=== PATIENT | female | born 1950 ===

== ENCOUNTER 2024-04-30 06:06 | Observation (INO) ==
--- NOTE | 2024-04-23 12:15 | Anesthesiology Consultation ---
Date of Service April 23, 2024 Assessment & Plan (1) Encounter for pre-operative examination: Chart Review Chart Review: Acceptable Risk for Surgery (will get CBC if none available on arrival) History Surgery Operation Date: 04/30/24 07:00 Proposed Procedures p Robotic Hysterectomy, Bilateral Salpingo-Oophorectomy, Robotic Sacral Colpopexy and Cystoscopy, Mid-Urethral Sling (Polypropylene Mesh) - Delgado Castillo MD Height/Weight Height: 4 ft 11 in Weight: 58.967 kg Allergies Allergy/AdvReac Type Severity Reaction Status Date / Time No Known Allergies Allergy Verified 04/20/24 09:37 Medications Home Medications Medication Instructions Recorded Confirmed Last Taken albuterol sulfate 90 mcg/actuation 2 puff inhalation Q6H PRN SOB 04/20/24 04/20/24 Unknown aerosol inhaler atorvastatin 10 mg tablet 10 mg PO QAM 04/20/24 04/20/24 Unknown azelastine 205.5 mcg (0.15 %) 1 spray intranasal BID 04/20/24 04/20/24 Unknown nasal spray estradiol 0.01% (0.1 mg/gram) 1 appful vaginal UD 04/20/24 04/20/24 Unknown vaginal cream fluticasone propionate 230 2 puff inhalation BID 04/20/24 04/20/24 Unknown mcg-salmeterol 21 mcg/actuation HFA inhaler (Advair HFA) gabapentin 100 mg capsule 100 mg PO HS 04/20/24 04/20/24 Unknown levothyroxine 75 mcg tablet 75 mcg PO QAM 04/20/24 04/20/24 Unknown montelukast 10 mg tablet 10 mg PO HS 04/20/24 04/20/24 Unknown pantoprazole 40 mg tablet,delayed 40 mg PO BID 04/20/24 04/20/24 Unknown release (Protonix) Past Medical History Medical History Asthma daily and prn inh>uses maybe 2x/week GERD (gastroesophageal reflux disease) Hypothyroidism Hyperlipidemia Past Surgical History Surgical History History of total right knee replacement History of total left knee replacement History of esophagogastroduodenoscopy (EGD) Hx of colonoscopy Social History Smoking Status: Never smoker Do You Dip or Chew Tobacco: No Hx Alcohol Use: No Hx Substance Use: No substance use type: does not use Testing Electrocardiogram Date: 04/20/24 Findings: + NSR @ (65 with PAC's) Echocardiogram Date: 02/08/23 EF: 55-60% LV Function: normal Valvular Disease: + no significant valvular disease
--- NOTE | 2024-04-30 05:37 | History & Physical Report ---
Date of Service April 30, 2024 Assessment & Plan (1) Uterovaginal prolapse, complete: Plan: Mrs Terrazas no longer wishes to use the pessary as it increases her DARIUS symptoms. She desires a robotic hysterectomy, BSO, Sacral Colpopexy, sling, and cystoscopy. Risks of infection, bleeding, injury,m pain, mesh exposure, urinary retention, and recurrence of prolapse were reviewed. All questions answered. Informed consent confirmed. Present on Admission?: Yes Admission and Anticipated Discharge Date Admission Date: 04/30/2024 Anticipated date of discharge: 05/01/24 History of Present Illness Chief Complaint: Uterovaginal prolapse Primary Care Provider: Lucrecia Jacobo MD Perry Terrazas has been using a pessary for her uterovaginal prolapse. Pessary works well for the prolapse symptoms, however, she continues to have DARIUS with coughing and sneezing. She saw Dr. Potter in [place] last year and was scheduled have surgery for her prolapse and incontinence. Since then she has relocated to [place] and lives with her daughter in law and son. She did have some vaginal bleeding, biopsy showed endometrial polyp. Using estrogen cream and the bleeding has resolved. Allergies Allergy/AdvReac Type Severity Reaction Status Date / Time No Known Allergies Allergy Verified 04/30/24 06:25 Home Medications Medication Instructions Recorded Confirmed Type albuterol sulfate 90 mcg/actuation 2 puff inhalation Q6H PRN SOB 04/20/24 04/30/24 History aerosol inhaler atorvastatin 10 mg tablet 10 mg PO QAM 04/20/24 04/30/24 History azelastine 205.5 mcg (0.15 %) 1 spray intranasal BID 04/20/24 04/30/24 History nasal spray estradiol 0.01% (0.1 mg/gram) 1 appful vaginal UD 04/20/24 04/30/24 History vaginal cream gabapentin 100 mg capsule 100 mg PO HS 04/20/24 04/30/24 History levothyroxine 75 mcg tablet 75 mcg PO QAM 04/20/24 04/30/24 History montelukast 10 mg tablet 10 mg PO HS 04/20/24 04/30/24 History pantoprazole 40 mg tablet,delayed 40 mg PO BID 04/20/24 04/30/24 History release (Protonix) budesonide-formoterol HFA 160 2 puff inhalation BID 04/30/24 04/30/24 History mcg-4.5 mcg/actuation aerosol inhaler (Symbicort) Past Med/Surg History Problem List Uterovaginal prolapse, complete Encounter for pre-operative examination Medical History Asthma daily and prn inh>uses maybe 2x/week GERD (gastroesophageal reflux disease) Hypothyroidism Hyperlipidemia Surgical History History of total right knee replacement History of total left knee replacement History of esophagogastroduodenoscopy (EGD) Hx of colonoscopy Social History Smoking Status: Never smoker Second Hand Exposure: No; Do You Dip or Chew Tobacco: No; Tobacco Cessation Education Requested by Patient: No Hx Alcohol Use: No Hx Substance Use: No Preferred Language: Malagasy Communication Ability: Effective Advanced Practice Nurse Psychotherapist Required: No Beliefs That Will Affect Care: None Current Living Situation: Spouse and Family Other Information That Helps Us Care for You: No Feels Safe at Home: Yes Safety Concerns: Feels Safe At This Time Assistive Devices: Glasses and Other Assistive Devices Comment: partial denture Review of Systems Review of Systems: All systems reviewed & are unremarkable except as noted in HPI & below Physical Exam Constitutional: WD/WN, vitals as above Eyes: PERRL, conjunctivae normal, anicteric sclerae Neck: trachea midline, no thyromegaly Respiratory: normal respiratory effort Cardiovascular: Rate/Rhythm: regular rate Gastrointestinal (Abdomen): normal bowel sounds, soft, nontender, no hepatosplenomegaly Musculoskeletal: no cyanosis or clubbing, extremities motor strength 5/5 Skin: no rashes, warm and dry Psychiatric: A+Ox3, euthymic affect Code Status & VTE Plan VTE Prophylaxis Plan VTE Prophylaxis will be ordered: Yes
[~2024-04-30 06:06] MED LIST: SODIUM CHLORIDE 0.9% 1,000 ML IV SCH
[2024-04-30] MEDS ORDERED: ONDANSETRON INJ 2 MG/ML 2 ML VIAL IV PRN ×2 (06:46→10:30)
[2024-04-30] MEDS ORDERED: ATROPINE SULFATE 0.1 MG/ML 10ML SYR IV PRN (06:46)
[2024-04-30] MEDS ORDERED: PROMETHAZINE HCL 6.25 MG in SODIUM CHLORIDE 0.9% 50 ML IV PRN (06:46)
[2024-04-30] MEDS ORDERED: HYDROmorphone INJ 2 MG/ML SYR/VIAL IV PRN (06:46)
[2024-04-30] MEDS ORDERED: ePHEDrine sulfate 50 MG/ML AMP IV PRN (06:46)
[2024-04-30] MEDS: LR 15ML/HR IV SCH (06:51)
[2024-04-30] MEDS: metroNIDAZOLE 500 MG/100 ML BAG IV SCH (06:52)
[2024-04-30] MEDS ORDERED: MIDAZOLAM HCL 1 MG/ML 2ML VIAL ONE (07:01)
[2024-04-30] MEDS ORDERED: fentaNYL citrate PF 100 MCG/2 ML VIAL ONE (07:02)
[2024-04-30] MEDS ORDERED: ROCURONIUM BROMIDE 10 MG/ML 5 ML VIAL IV ONE (07:02)
[2024-04-30] MEDS ORDERED: PROPOFOL IV EMULSION 10 MG/ML 20 ML VIAL IV ONE (07:02)
[2024-04-30] MEDS ORDERED: DEXAMETHASONE SOD INJ 4 MG/ML VIAL ONE (07:03)
[2024-04-30] MEDS ORDERED: GLYCOPYRROLATE 0.2 MG/ML VIAL ONE (07:03)
[2024-04-30] MEDS ORDERED: NEOSTIGMINE METHYLSULFATE 1 MG/ML 10ML VIAL ONE (07:03)
[2024-04-30] MEDS ORDERED: ONDANSETRON INJ 2 MG/ML 2 ML VIAL ONE ×2 (07:03→09:54)
[2024-04-30] MEDS ORDERED: LIDOCAINE 2% 2 ML VIAL/AMP(20MG/ML) INFIL ONE (07:04)
[2024-04-30] MEDS: ceFAZolin 2000MG 2,000 MG/15 ML SYR IV SCH (07:45)
[2024-04-30] MEDS: FLOSEAL HEMOSTATIC MATRIX 10ML TOP ONE (09:43)
[2024-04-30] MEDS: LIDOCAINE 1%/EPINEPHRINE 1:100,000 50 ML VIAL ONE (10:18)
[2024-04-30] MEDS: BUPIVACAINE 0.5 % 5 MG/1 ML MPF 30ML VIAL ONE (10:18)
[2024-04-30] MEDS ORDERED: oxyCODONE/ACETAMINOPHEN 5mg/325mg TAB PO PRN ×2 (10:30)
[2024-04-30] MEDS: fentaNYL citrate PF 100 MCG/2 ML VIAL IV PRN (10:52)
--- NOTE | 2024-04-30 10:57 | Operative Report ---
Post Operative Report Pre & Post Diagnosis Operation Date: 04/30/24 07:30 Pre-Op Diagnosis: Uterovaginal prolapse, complete, Stress Urinary Incontinence Post-Op Diagnosis: Uterovaginal prolapse, complete, Stress Urinary Incontinence I identified the patient and participated in the time-out.: Yes Procedure Operation Date: 04/30/24 07:30 Actual Procedures p Robotic Hysterectomy, Bilateral Salpingo-Oophorectomy, Robotic Sacral Colpopexy and Cystoscopy, Mid-Urethral Sling (Polypropylene Mesh)(Not Applicable) - Delgado Castillo MD Surgeon Delgado Castillo MD Bulk Clerk Zee Navarro PA-C Estimated Blood Loss 25 Findings Consistent with Post-Op Diagnosis Uterovaginal prolapse. Normal appearing cervix, uterus, tubes, and ovaries. Excellent efflux of ureters bilaterally. Normal cystoscopy. Fluids Crystalloid Specimens cervix, uterus, tubes, and ovaries Drains Dougherty catheter Anesthesia Type General Complications none Disposition Accompanied Patient To Recovery: Yes Disposition: Recovery Room Indications Symptomatic uterovaginal prolapse, DARIUS. No longer wishes to use a pessary. Description of Procedure After Edisjosefina Mk was correctly identified in the preoperative area, the indications, risks, benefits, and alternatives were reviewed. All questions answered. Informed consent was confirmed. Patient was then taken to the operating room and given general anesthesia by anesthesia service. She was then placed in dorsal lithotomy position using Percy stirrups. She was prepped and draped in the usual sterile fashion. Time out was performed. A Dougherty catheter was placed. The cervix was grasped with a tenaculum and sounded. The cervix was serially dilated and a medium size uterine manipulator was placed. Attention was then focused to the abdomen. An 8mm incision was made in the umbilicus. An 8 mm trocar with Optiview was inserted into the incision and advanced into the abdominal cavity under direct visualization. The abdomen was insufflated with CO2 gas. Inspection revealed no adhesions. On the left, two 8 mm trocars were placed. On the right, two 8 mm trocars were placed. The patient was placed in Trendelenburg position to allow the small bowel to retract out of the pelvis. The robot was docked. The ureters were well visualized bilaterally. The left IP ligament was grasped, vessel sealed, and transected. The left round ligament was grasped, vessel sealed and transected. The bladder flap was developed. The left uterine vessels were dissected, grasped, vessel sealed, and transected at the level of the cervical cup of the uterine manipulator. The right IP ligament was grasped, vessel sealed, and transected. The right round ligament was grasped, vessel sealed and transected. The bladder flap was completed. The right uterine vessels were dissected, grasped, vessel sealed, and transected at the level of the cervical cup of the uterine manipulator. A colpotomy incision was made following the contours of the cervical cup. The cervix,uterus, tubes, and ovaries were delivered out the vagina and sent to pathology as specimen. The vaginal cuff was closed with 0 V-lock suture in two layers in a running fashion. The bladder was then dissected off the anterior vaginal wall. The rectum was then dissected off the posterior vaginal wall. A peritoneal incision was made from the sacral promontory and extended to the right corner of the vaginal cuff along the right ingris-colic gutter. The Y mesh was then secured to the anterior and posterior vaginal wall with 2-0 V lock suture in a running fashion. The tail end of the mesh was secured to the anterior longitudinal ligament just below the sacral promontory with 3 interrupted sutures of CV-0 Dowell-jamilah. The excess mesh was trimmed and removed. The peritoneum was closed over the mesh with 2-0 V lock suture in a running fashion. Floseal was applied to the pedicles. Excellent hemostasis was confirmed. The robot was undocked. The trocars were removed under direct visualization. The incisions were closed with 4-0 Monocryl in a subcuticular fashion. Attention was then focused vaginally. The vaginal mucosa overying the mid urethra was grasped with Allis clamps and infiltrated with 0.5% lidocaine with epinephrine. A midline incision was made with the scalpel. The Solyx sling was assembled. The introducer was placed through the incision, advanced to the left pubic rami and inserted into the right obturator internus muscle. The introducer with the other end of the sling was placed through the incision,advanced to the right pubic rami and inserted into the right obturator internus muscle. Excellent hemostasis was noted. The Dougherty catheter was removed and cystoscopy was performed with a 17F 70 deg scope. Systematic inspection of the bladder dome, trigone, and urethra revealed no lesions. Excellent efflux of clear urine was demonstrated bilaterally. The scope was removed and the Dougherty catheter was inserted. The incision was closed with 2-0 Vicryl in a running fashion. All sponge lap and needle counts were correct x 2. Patient was then awakened, extubated and sent to recovery in good condition. I attest to the content of the Intraoperative Record and any orders documented therein. Any exceptions are noted below. No qualified resident was available. An advanced provider,Zee Navarro PA-C, was needed to assist with patient positioning, draping, retraction, irrigation, robotic instrument exchange, and wound closure.
--- NOTE | 2024-04-30 11:39 | Anesthesiology Progress Note ---
Date of Service April 30, 2024 Anesthesia Post Procedure Vital Signs Vital Signs: Temp Pulse Pulse Resp BP Pulse Ox O2 Del Method 04/30/24 11:20 62 16 149/61 H 93 Room Air 04/30/24 11:10 49 L 16 157/64 H 94 Oxymask 04/30/24 11:00 51 L 16 159/84 H 94 Oxymask 04/30/24 10:50 66 18 144/93 H 99 Oxymask 04/30/24 10:40 59 L 19 159/80 H 97 Oxymask 04/30/24 10:33 36.0 C L 81 13 157/82 H 97 Oxymask 04/30/24 06:32 Room Air 04/30/24 06:32 36.6 C 67 16 165/84 H 97 Room Air O2 Flow Rate 04/30/24 11:20 04/30/24 11:10 2 04/30/24 11:00 2 04/30/24 10:50 2 04/30/24 10:40 4 04/30/24 10:33 4 04/30/24 06:32 04/30/24 06:32 Pain Intensity Lower Abdomen: Pain Intensity: 4 Transfer of Care Handoff Completed per policy Notes Mental Status: alert / awake / arousable and participated in evaluation Patient Amnestic to Procedure: Yes Nausea / Vomiting: adequately controlled Pain: adequately controlled Airway Patency, RR, SpO2: stable & adequate BP & HR: stable & adequate Hydration State: stable & adequate Anesthetic Complications: no major complications apparent
[2024-04-30] MEDS: IBUPROFEN 600 MG TAB PO PRN (14:21)
[2024-04-30] MEDS: COUGH DROP (SUGAR FREE) LOZ 24 LOZ/1 BOX BUCCAL ONE (14:21)
--- OUTSIDE RECORDS SUMMARY | 2024-04-30 17:02 | External Medical Summary | Summary of Care ---
Author Name Unknown Organization [facility] Address [address] [place] [address] Phone [phone] Care Team Providers Care Manager Distribution Center Name Role Phone Lucrecia Jacobo MD Primary Care Provider + Reason for Visit * Reason Onset Date Comments Test Results 04/29/2024 Encounter Details Date Type Department Care Team (Late st Contact Info) Description 04/29/2024 Telephone General Internal Medicine [facility] [address] [facility] [place] [address] Lucrecia Jacobo MD [address] [place] [address] Test Results Allergies No known active allergiesdocumented as of this encounter (statuses as of 04/29/2024) Medications Medication Sig Dispensed Refills Start Date End Date Status Celecoxib 200 MG Oral Capsule (CeleBREX) 02/03/2023 Active Albuterol Sulfate HFA 108 (90 Base) MCG/ACT Inhalation Aerosol SolutionIndications:M ild intermittent asthma without complication INHALE 2 PUFFS BY MOUTH EVERY 4 HOURS NEEDED FOR WHEEZE OR FOR SHORTNESS OF BREATH 54 g 3 11/18/2023 Active Atorvastatin Calcium 10 MG Oral Tablet (Lipitor)Indications: Hyperlipidemia with target LDL less than 100 Take 1 Tablet by mouth in the morning. 90 Tablet 3 11/18/2023 Active Estradiol 0.1 MG/GM Vaginal Cream (Estrace) PLACE 0.5 GRAM TWICE WEEKLY VAGINALLY 42.5 g 11/18/2023 Active Fluticasone Propionate 50 MCG/ACT Nasal Suspension (Flonase) SPRAY 1 SPRAY BY NASAL ROUTE EVERY DAY 48 g 3 11/18/2023 Active Gabapentin 100 MG Oral Capsule (Neurontin)Indication s:Chronic bilateral low back pain without sciatica Take 1 Capsule by mouth at bedtime. 90 Capsule 5 11/18/2023 Active Levothyroxine Sodium 75 MCG Oral Tablet (Levoxyl)Indications: Acquired hypothyroidism Take 1 Tablet by mouth in the morning. 90 Tablet 3 11/18/2023 Active Nystatin 867815 UNIT/ML Mouth/Throat SuspensionIndications :Thrush Swish and swallow 5 mL in the morning and 5 mL at noon and 5 mL in the evening and 5 mL before bedtime. For thrush.. 240 mL 1 11/18/2023 Active Pantoprazole Sodium 40 MG Oral Tablet Delayed Release (Protonix)Indications :Gastroesophageal reflux disease without esophagitis Take 1 Tablet by mouth in the morning and 1 Tablet before bedtime. 180 Tablet 3 11/18/2023 Active Montelukast Sodium 10 MG Oral Tablet (Singulair)Indication s:Mild intermittent asthma without complication Take 1 Tablet by mouth at bedtime. 1 daily 90 Tablet 3 11/18/2023 Active Loratadine 10 MG Oral Tablet (Claritin)Indications :Chronic maxillary sinusitis Take 1 Tablet by mouth in the morning. 1 daily. 90 Tablet 3 11/18/2023 Active Azelastine HCl 137 MCG/SPRAY Nasal Solution INHALE 1 SPRAY INTO EACH NOSTRIL IN THE MORNING AND AT BEDTIME 30 mL 3 04/14/2024 Active Famotidine 40 MG Oral Tablet (Pepcid) Take 1 Tablet by mouth daily as needed for Heartburn. Active Fluticasone-Salmetero l 230-21 MCG/ACT Inhalation Aerosol (Advair HFA) Inhale 2 Puffs by mouth in the morning and 2 Puffs before bedtime. Already approved for patient. 36 g 4 04/26/2024 Active Benzonatate 100 MG Oral Capsule (Tessalon Perles) Take 1 Capsule by mouth 3 times a day as needed for Cough. 20 Capsule 1 04/27/2024 Active Budesonide-Formoterol Fumarate 160-4.5 MCG/ACT Inhalation Aerosol (Symbicort) Inhale 2 Puffs by mouth in the morning and 2 Puffs before bedtime. 30.6 g 3 04/27/2024 Active documented as of this encounter (statuses as of 04/29/2024) Active Problems Problem Noted Date Diagnosed Date Gastroesophageal reflux disease without esophagi tis 03/26/2023 Hyperlipidemia with target LDL less than 100 04/2023 Acquired hypothyroidism 03/26/2023 Osteoarthritis of right knee Asthma GERD (gastroesophageal reflux disease) Glaucoma Hypothyroid documented as of this encounter (statuses as of 04/29/2024) Immunizations Name Administration Dates Next Due COVID-19 mRNA, LNP-s, PF, 18+ or 6-11Yrs (Modern a) 12/18/2020,11/18/2020 Pneumococcal Conjugate Vacc, 13 Valent (Prevnar) 11/04/2017 Pneumococcal Polysaccharide PPV23 (Pneumovax) ,04/02/2016 RSV Vac., Recomb, Adjuvant, PF,0.5 Ml (Arexvy) 0 10/26/2023 Seasonal Influenza, PF, 6 M & above, IM , (FluLaval or Fluzone) 06/27/2022 Seasonal Influenza, Quadrivalent Hd (Fluzone Hd) 06/30/2023 Seasonal Influenza, Split, IIV3, No Preserve, In j 08/20/2013 Seasonal Influenza, Trivalen t, High Dose, No Preserve, IM 08/05/2017 TDAP (age 10 and older)(Boostrix) 04/02/2016 Zoster Vaccine Recombinant (Shingrix) 04/30/2021 ,08/30/2020 documented as of this encounter Social History Tobacco Use Types Packs/Day Years Used Date Smoking Tobacco: Never Smokeless Tobacco: Never Alcohol Use Standard Drinks/Week Comments Never 0 (1 standard drink = 0.6 oz pur e alcohol) Utilities Answer Date Recorded Do you have trouble paying y our heating, water, or electric bill? (Adult - for ages 18 years and over) Not on file 04/06/2024 Is your family able to pay t he heat, water, or electric bill? (Household - for ages 0-17 years) Not on file 04/06/2024 Does your family have access to good internet? (Household - for ages 0-17 years) Not on file 04/06/2024 Social Connections Answer Date Recorded How often do you feel lonely or isolated from those around you? (Adult - for ages 18 years and over) Not on file 04/06/2024 Sex and Gender Information Value Date Recorded Sex Assigned at Female 11/23/2023 11:25 AM EST Gender Identity Female 11/23/2023 11:25 AM EST Sexual Orientation Straight 11/23/2023 11 :25 AM EST Job Start Date Occupation Industry Not on file Not on file Not on file Travel History Travel Start Travel End [place] 04/05/2024 04/16/2024 documented as of this encounter Miscellaneous Notes * Telephone Encounter - Lashay Cantu MED ASSIST - 04/29/2024 7:59 AM EDT Spoke to Rebecca Terrazas, aware and verbalized understanding. Decided to fax OV notes to be on the safe side OV notes faxed to Dr Castillo at [phone]. Confirmation received * Telephone Encounter - Lashay Cantu MED ASSIST - 04/29/2024 7:56 AM EDT ----- Message from Lucrecia Jacobo MD sent at 04/27/2024 6:57 PM EDT ----- Patient's preop labs and chest x-ray came back normal which makes her clear for upcoming surgery. If needed can fax the notes to her ortho surgeon and check with the [id number] Dr. Rebecca Terrazas. documented in this encounter Plan of Treatment Upcoming Encounters Date Type Department Care Team (Late st Contact Info) Description 05/12/2024 4:10 PM EDT Telemedicine Urogynecology [facility] [address] [place] [address] Delgado Castillo MD [address] [place] [address] 05/26/2024 2:10 PM EDT Office Visit Urogynecology [facility] [address] [place] [place] [address] Delgado Castillo MD [address] [place] [address] 09/01/2024 3:30 PM EST Office Visit Allergy/Immunology [facility] [place] [address] [facility] [place] [address] [facility] [address] Health Maintenance Due Date Last Done Comments Depression Screening 1962 Hepatitis C Screening 1969 Cologuard 1996 Colonoscopy 1996 Colorectal Cancer Screening 1996 Fecal Occult Blood Test 1996 Sigmoidoscopy 1996 COVID-19 Vaccine ( season) 2024 10/26/2023, 02/04/2022, 12/18/2020, Additional history exists Influenza Vaccine (FLU shot) (#1) 2024 06/30/2023, 06/27/2022, 08/05/2017, Additional history exists Mammogram 11/25/2024 11/25/2023, 02/19, 03/19/2022, Additional history exists TSH 04/24/2025 04/24/2024, 10/21, 03/27/2023 DTaP,Tdap,and Td Vaccines (2 - Td or Tdap) 04/02/2026 04/02/2016 DXA Scan 11/18/2027 11/18/2017 Lipid Panel 04/24/2029 04/24/2024, 11/13/2023 Pneumococcal Vaccine: 65+ Years Completed 04/30/2021, 11/04/2017, 04/02/2016 Zoster Vaccines Completed 04/30/2021, 08/30/2020 HPV (Gardasil) Vaccine Aged Out No lo nger eligible based on patient's age to complete this topic Hepatitis B Vaccine Aged Out No longe r eligible based on patient's age to complete this topic MENINGOCOCCAL (MENACTRA/MENVEO) Aged Out No longer eligible based on patient's age to complete this topic documented as of this encounter Medical Devices Not on filedocumented as of this encounter Care Teams Manager Distribution Center Relationship Specialty Start Date End Date Lucrecia Jacobo MD [address] [place] [address] PCP - General Internal Medicine 10/02/23 documented as of this encounter
--- OUTSIDE RECORDS SUMMARY | 2024-04-30 17:02 | External Medical Summary | Summary of Care ---
Author Name Unknown Organization [facility] Address [address] [place] [address] Phone [phone] Care Team Providers Care Clutch Mechanic Name Role Phone Lucrecia Jacobo MD Primary Care Provider + Encounter Details Date Type Department Care Team (Late st Contact Info) Description 04/27/2024 Telephone Allergy/Immunology [facility] [place] [address] [place] [address] David Lester MD [address] [facility] [address] Allergies No known active allergiesdocumented as of this encounter (statuses as of 04/27/2024) Medications Medication Sig Dispensed Refills Start Date [...] morning. 90 Tablet 3 11/18/2023 Active Nystatin [id number] UNIT/ML Mouth/Throat SuspensionIndications :Thrush Swish and swallow [...] and 1 Tablet before bedtime. 180 Tablet 11/18/2023 Active Montelukast Sodium 10 MG Oral Tablet (Singulair)Indication s:Mild intermittent asthma without complication Take 1 Tablet by mouth at bedtime. 1 daily 90 Tablet 11/18/2023 Active Loratadine 10 MG Oral Tablet (Claritin)Indications :Chronic maxillary sinusitis Take 1 Tablet by mouth in the morning. 1 daily. 90 Tablet 11/18/2023 Active Azelastine HCl 137 MCG/SPRAY Nasal [...] as of this encounter (statuses as of 04/27/2024) Active Problems Problem Noted Date Diagnosed Date Gastroesophageal reflux disease without esophagi tis 03/26/2023 Hyperlipidemia with target LDL less than 100 04/2023 Acquired hypothyroidism 03/26/2023 Osteoarthritis of right knee Asthma GERD (gastroesophageal reflux disease) Glaucoma Hypothyroid documented as of this encounter (statuses as of 04/27/2024) Immunizations Name Administration Dates Next Due COVID-19 [...] 04/05/2024 04/16/2024 documented as of this encounter Plan of Treatment Upcoming Encounters Date Type Department Care Team (Late st Contact Info) Description 05/04/2024 9:15 AM EDT Imaging Cardiac Studies, [facility] [address] [facility] [place] [address] 05/12/2024 4:10 PM EDT Telemedicine Urogynecology [facility] [address] [facility] [place] [address] Delgado Castillo MD [address] [place] [address] 05/26/2024 2:10 PM EDT Office Visit Urogynecology [facility] [address] [facility] [place] [address] Delgado Castillo MD [address] [place] [address] 09/01/2024 3:30 PM EST [facility] [address] [facility] [place] [address] David Lester MD [address] [facility] [place] [address] Health Maintenance Due Date Last Done Comments [...] filedocumented as of this encounter Care Teams Clutch Mechanic Relationship Specialty Start Date End Date Lucrecia Jacobo MD [address] [place] [address] PCP - General Internal Medicine 10/02/23 documented as of this encounter
--- OUTSIDE RECORDS SUMMARY | 2024-04-30 17:02 | External Medical Summary | Summary of Care ---
Author Name Unknown Organization [facility] Address [address] [place] [address] Phone [phone] Care Team Providers Care Back Up Machine Operator Name Role Phone Lucrecia Jacobo MD Primary Care Provider + Reason for Referral * Precert (Within 10 days (routine)) - Authorized Specialty Diagnoses / Procedures Referred By Contac t Referred To Contact Cardiac Studies Diagnoses Preoperative general physical examination EKG abnormalities Procedures ECHO, STRESS (DOBUTAMINE) W/CONTRAST Lucrecia Jacobo MD [address] [facility] [place] [address] Referral ID Status Reason Start Date Expiration Date V isits Requested Visits Authorized [id number] Authorized Precert 04/20/2024 999 999 Reason for Visit * Reason Comments pre-op exam Encounter Details Date Type Department Care Team (Latest Contact Info) Description 04/20/2024 2:00 PM EDT Office Visit General Internal Medicine [place] [address] [place] [address] Lucrecia Jacobo MD [address] [facility] [place] [address] Preoperative general physical examination*; Uterovaginal prolapse, incomplete; Stress incontinence; EKG abnormalities Allergies No known active allergiesdocumented as of this encounter (statuses as of 04/27/2024) Medications Medication Sig Dispensed Refills Start Date End Date Status Celecoxib 200 MG Oral Capsule (CeleBREX) 02/03/2023 Active Albuterol Sulfate HFA 108 (90 Base) MCG/ACT Inhalation Aerosol SolutionIndications: Mild intermittent asthma without complication INHALE 2 PUFFS BY MOUTH EVERY 4 HOURS NEEDED FOR WHEEZE OR FOR SHORTNESS OF BREATH 54 g 11/18/2023 Active Atorvastatin Calcium 10 MG Oral Tablet (Lipitor)Indications :Hyperlipidemia with target LDL less than 100 Take 1 Tablet by mouth in the morning. 90 Tablet 11/18/2023 Active Estradiol 0.1 MG/GM Vaginal Cream (Estrace) PLACE 0.5 GRAM TWICE WEEKLY VAGINALLY 42.5 g 11/18/2023 Active Fluticasone Propionate 50 MCG/ACT Nasal Suspension (Flonase) SPRAY 1 SPRAY BY NASAL ROUTE EVERY DAY 48 g 11/18/2023 Active Gabapentin 100 MG Oral Capsule (Neurontin)Indicatio ns:Chronic bilateral low back pain without sciatica Take 1 Capsule by mouth at bedtime. 90 Capsule 11/18/2023 Active Levothyroxine Sodium 75 MCG Oral Tablet (Levoxyl)Indications :Acquired hypothyroidism Take 1 Tablet by mouth in the morning. 90 Tablet 11/18/2023 Active Nystatin 635203 UNIT/ML Mouth/Throat SuspensionIndication s:Thrush Swish and swallow 5 mL in the morning and 5 mL at noon and 5 mL in the evening and 5 mL before bedtime. For thrush.. 240 mL 11/18/2023 Active Pantoprazole Sodium 40 MG Oral Tablet Delayed Release (Protonix)Indication s:Gastroesophageal reflux disease without esophagitis Take 1 Tablet by mouth in the morning and 1 Tablet before bedtime. 180 Tablet 11/18/2023 Active Montelukast Sodium 10 MG Oral Tablet (Singulair)Indicatio ns:Mild intermittent asthma without complication Take 1 Tablet by mouth at bedtime. 1 daily 90 Tablet 11/18/2023 Active Loratadine 10 MG Oral Tablet (Claritin)Indication s:Chronic maxillary sinusitis Take 1 Tablet by mouth in the morning. 1 daily. 90 Tablet 11/18/2023 Active Azelastine HCl 137 MCG/SPRAY Nasal Solution INHALE 1 SPRAY INTO EACH NOSTRIL IN THE MORNING AND AT BEDTIME 30 mL 3 04/14/2024 Active Famotidine 40 MG Oral Tablet (Pepcid) Take 1 Tablet by mouth daily as needed for Heartburn. Active Meloxicam (MOBIC) 15 MG Tablet As needed 4 Discontinue d(Patient preference/ discontinua tion) Fluticasone-Salmeter ol 230-21 MCG/ACT Inhalation Aerosol (Advair HFA) Inhale 2 Puffs by mouth in the morning and 2 Puffs before bedtime. Already approved for patient. 36 g 4 11/25/2023 4 Discontinue d(Refill) documented as of this encounter (statuses as [...] 04/05/2024 04/16/2024 documented as of this encounter Last Filed Vital Signs Vital Sign Reading Time Taken Comments Blood Pressure 98/62 04/20/2024 2:11 PM EDT Pulse 68 04/20/2024 2:11 PM EDT Temperature 36.1 C (97 F) 04/20/2024 2:11 PM EDT Respiratory Rate 16 04/20/2024 2:11 PM EDT Oxygen Saturation - - Inhaled Oxygen Concentration - - Weight 62.1 kg (136 lb 12.8 oz) 04/20/2024 2:11 PM EDT Height - - Body Mass Index 27.63 12/03/2023 3:49 PM EST documented in this encounter Progress Notes * Lucrecia Jacobo MD - 04/20/2024 2:25 PM EDT Images from the original note were not included. Pre-Operative Medical Evaluation Procedure Information Type of Surgery: Robotic hysterectomy, bso, sacral colpopexy, sling, and cystoscopy Referring Physician / Surgeon: Delgado Castillo MD Date of procedure: 04/30/24 Brief History of Present Illness: Pt with stress incontinence, hx of Uterovaginal prolapse.pessary not very helpful. DARIUS with coughing, sneezing. Medical History Problem List: Gastroesophageal reflux disease without esophagitis (03/26/2023) Hyperlipidemia with target LDL less than 100 (03/26/2023) Acquired hypothyroidism (03/26/2023) Osteoarthritis of right knee Asthma GERD (gastroesophageal reflux disease) Glaucoma Hypothyroid Current Medications Famotidine 40 MG Oral Tablet (Pepcid), 40 mg, Oral, Daily PRN Azelastine HCl 137 MCG/SPRAY Nasal Solution, INHALE 1 SPRAY INTO EACH NOSTRIL IN THE MORNING AND ATBEDTIME Fluticasone-Salmeterol 230-21 MCG/ACT Inhalation Aerosol (Advair HFA), 2 Puff, Inhalation, BID(AM/PM) Albuterol Sulfate HFA 108 (90 Base) MCG/ACT Inhalation Aerosol Solution, INHALE 2 PUFFS BY MOUTH EVERY 4 HOURS NEEDED FOR WHEEZE OR FOR SHORTNESS OF BREATH Atorvastatin Calcium 10 MG Oral Tablet (Lipitor), 10 mg, Oral, Daily(AM) Estradiol 0.1 MG/GM Vaginal Cream (Estrace), PLACE 0.5 GRAM TWICE WEEKLY VAGINALLY Fluticasone Propionate 50 MCG/ACT Nasal Suspension (Flonase), SPRAY 1 SPRAY BY NASAL ROUTE EVERY DAY Gabapentin 100 MG Oral Capsule (Neurontin), 100 mg, Oral, HS Levothyroxine Sodium 75 MCG Oral Tablet (Levoxyl), 75 mcg, Oral, Daily(AM) Loratadine 10 MG Oral Tablet (Claritin), 10 mg, Oral, Daily(AM) Montelukast Sodium 10 MG Oral Tablet (Singulair), 10 mg, Oral, HS Nystatin 147568 UNIT/ML Mouth/Throat Suspension, 500,000 Units, Swish & Swallow, QID(AM/NOON/PM/HS) Pantoprazole Sodium 40 MG Oral Tablet Delayed Release (Protonix), 40 mg, Oral, BID(AM/PM) Celecoxib 200 MG Oral Capsule (CeleBREX), Meloxicam (MOBIC) 15 MG Tablet, As needed Allergies: Patient has no known allergies. Past Medical History: has a past medical history of Allergic, Asthma, GERD (gastroesophageal reflux disease), Glaucoma, Hyperlipidemia, Hyponatremia, Hypothyroid, Insomnia, Osteoarthritis, Osteoarthritis of right knee, and Osteoporosis. Past Surgical History: has a past surgical history that includes none and Arthroplasty Knee Total (Bilateral). Social History: reports that she has never smoked. She has never used smokeless tobacco. She reports that she does not drink alcohol and does not use drugs. Family History: family history includes Arthritis in her mother; Diabetes in her brother, brother, and mother; Heart Disorder in her father; Heart disease in her father; Stroke in her brother. Anesthesia History Type of Anesthesia: General Endotracheal and Caudal block Anesthesia reaction: No History of surgical complications: No Personal history of venous thromboembolic disease: No Physical Exam Vitals: 04/20/24 1411 Temp: 36.1 C (97 F) Pulse: 68 Resp: 16 BP: 98/62 HEENT: PERRLA, EOMI, anicteric sclera, b/l tympanic membrane is pearly white, no erythema, no pharyngeal erythema, no lymphadenopathy, neck supple CVS: RRR, no murmurs, rubs or gallops, s1 s 2normal. RESP: clear to auscultation, no wheezing or crackles ABD: soft, NT/ND EXT: no edema, cyanosis, peripheral pulses palpable bilaterally No large joint swelling, no redness, range of motion normal. Skin normal. Gait normal. Mood stable No focal weakness Labs reviewed and are significant for: None and is not significant for any abnormalities. EKG by my review is significant for: T wave changes, NO ST T changes, occasional PVCS, changes are not new. Surgical Risk Scoring Revised Cardiac Risk Index (RCRI) High-risk type of surgery (examples include vascular and any open intraperitoneal or intrathoracic procedures): 0=No History of ischemic heart disease (history of myocardial infarction or positive exercise test, current compliant of chest pain considered to be secondary to myocardia ischemia, use of nitrate therapy, or ECG with pathological Q waves; do not count prior coronary revascularization procedure unless one of the other criteria for ischemic heart disease is present): 0=No History of heart failure: 0=No History of cerebrovascular disease: 0=No Diabetes mellitus requiring treatment with insulin: 0=No Preoperative serum creatinine >2.0 mg/dL (177 micromol/L): 0=No Pt has revised cardiac index score of: One Risk Factor- 1.0% (95% CI: 0.5-1.4) Screening for Obstructive Sleep Apnea (STOP-BANG) Do you Snore loudly? 0=No Do you often feel Tired, Fatigued, or Sleep? 0=No Has anyone Observed you Stop Breathing or Choking/Gasping during sleep? 0=No Do you have or are you being treated for High Blood Pressure? 0=No BMI over 35? 0=No Age older than 50? 0=No Neck size large? (For males - 17 inches or larger, For females - 16 inches or larger) 0=No Male? 0=No Score 0-2:low risk YAN, 3-4: intermediate risk of YAN, 5-8: high risk YAN Assessment and Plan Functional Assessment They are able to walk up a flight of stairs and walk two blocks at a moderate pace. The patient's functional status is adequate (equal to 4 METS). 1 MET: 4 METs: 4-10 METs: Can take care of self, such as eat, dress or use the toilet. Can walk to block or go up a flight of steps. Can do heavy house work. Preoperative general physical examination (Primary) - XR CHEST 2 VIEWS - ECHO, STRESS (DOBUTAMINE) W/CONTRAST; Future; Expected date: 04/20/2024 Uterovaginal prolapse, incomplete - EKG Stress incontinence - EKG EKG abnormalities - ECHO, STRESS (DOBUTAMINE) W/CONTRAST; Future; Expected date: 04/20/2024 Surgical Risk Assessment Patient is indeterminate medical risk for the listed procedure. Medication adjustments: Avoid Nsaids, ASA, fish oil a week prior to surgery. Perioperative hydration in moderation looking at hx of hyponatremia. Continue all meds except morning of surgery but can use PPI, inahlers. Looking at all the labs and Xray chest, clinical condition- Pt is clear for upcoming surgery. Additional consults or testing: Can get Dobutamine Echo but not urgent and can get after the surgery. 2 D Echo last year in [place] was normal. documented in this encounter Procedure Notes * Vito Elena, - 04/20/2024 2:48 PM EDTAssociated Order(s): EKG REASON FOR STUDY: preoperative;preoperative CONCLUSIONS: Sinus rhythm with Premature atrial complexes Possible Left atrial enlargement Left ventricular hypertrophy Abnormal ECG No previous ECGs available Ventricular Rate: 64 Atrial Rate: 64 MD Interval: 194 QRS Duration: 80 QT/QTc: 396/408 ms P-R-T [place]: 27 : -18 : 17 degrees documented in this encounter Nursing Notes * Serena Woodruff LPN - 04/20/2024 2:11 PM EDT The patient has been properly identified by confirmation of name and date of . Chief Complaint Patient presents with pre-op exam documented in this encounter Miscellaneous Notes * Result Encounter Note - Lucrecia Jacobo MD - 04/27/2024 6:57 PM EDT Patient's preop labs and chest x-ray came back normal which makes her clear for upcoming surgery. If needed can fax the notes to her ortho surgeon and check with the [id number] Dr. Rebecca Terrazas. documented in this encounter Plan of Treatment Upcoming Encounters Date Type Department Care Team (Late st Contact Info) Description 05/04/2024 9:15 AM EDT [facility] [address] [place] [address] 05/12/2024 4:10 PM EDT Telemedicine Urogynecology [facility] [address] [place] [address] Delgado Castillo MD [address] [place] [address] 05/26/2024 2:10 PM EDT Office Visit Urogynecology [facility] [address] [place] [address] Dlegado Castillo MD [address] [place] [address] 09/01/2024 3:30 PM EST Office Visit Allergy/Immunology [facility] [place] [address] [facility] [place] [address] David Lester MD [address] [facility] [place] [address] Scheduled Orders Name Type Priority Associated Diagnoses Orde r Schedule ECHO, STRESS (DOBUTAMINE) W/CONTRAST Echocardiology Routine Preoperative general physical examination EKG abnormalities Expected: 04/20/2024, Expires: 05/21/2025 Health Maintenance Due Date Last Done Comments [...] Not on filedocumented as of this encounter Procedures Procedure Name Priority Date/Time Associated Diagnosis Comments XR CHEST 2 VIEWS Routine 04/20/2024 3:44 PM EDT Preoperative general physical examination MD ECG ROUTINE ECG W/LEAST 12 LDS I&R ONLY Routine 04/20/2024 2:48 PM EDT Uterovaginal prolapse, incomplete Stress incontinence documented in this encounter Results * XR CHEST 2 VIEWS (04/20/2024 3:44 PM EDT) Anatomical Region Laterality Modality Chest Computed Radiogr aphy 04/21/2024 6:27 PM EDT Impressions 04/21/2024 6:24 PM EDT IMPRESSION No active disease. Narrative 04/21/2024 6:24 PM EDT EXAM XR CHEST 2 VIEWS - 04/20/2024 3:44 pm HISTORY "preop" TECHNIQUE Frontal and lateral views of the chest were obtained. COMPARISON None. FINDINGS The lungs are clear. There is no pleural effusion or pneumothorax. The cardiomediastinal silhouette is within normal limits. Procedure Note Joe Jacobo MD - 04/21/2024 EXAM XR CHEST 2 VIEWS - 04/20/2024 3:44 pm HISTORY "preop" TECHNIQUE Frontal and lateral views of the chest were obtained. COMPARISON None. FINDINGS The lungs are clear. There is no pleural effusion or pneumothorax. Thecardiomediastinal silhouette is within normal limits. IMPRESSION IMPRESSION No active disease. Lucrecia Jacobo MD RADIOLOGY (RAD G ENERAL) * EKG (04/20/2024 2:48 PM EDT) 04/20/2024 2:48 PM EDT Narrative Procedure Note Vito Elena DO - 04/20/2024 2:48 PM EDT REASON FOR STUDY: preoperative;preoperative CONCLUSIONS: Sinus rhythm with Premature atrial complexes Possible Left atrial enlargement Left ventricular hypertrophy Abnormal ECG No previous ECGs available Ventricular Rate: 64 Atrial Rate: 64 MD Interval: 194 QRS Duration: 80 QT/QTc: 396/408 ms P-R-T [place]: 27 : -18 : 17 degrees Delgado Castillo MD EKG Performing Organization Address City/State/[facility] [[email or web address]] Co de Phone Number [facility] documented in this encounter Visit Diagnoses Diagnosis Preoperative general physical examination- Primary Other specified pre-operative examination Uterovaginal prolapse, incomplete Stress incontinence Female stress incontinence EKG abnormalities Nonspecific abnormal electrocardiogram (ECG) (EKG) documented in this encounter Care Teams Back Up Machine Operator Relationship Specialty Start Date End Date uLcrecia Jacobo MD [address] [facility] [place] [address] PCP - General Internal Medicine 10/02/23 documented as of this encounter
--- OUTSIDE RECORDS SUMMARY | 2024-04-30 17:03 | External Medical Summary | Summary of Care ---
Author Name Unknown Organization [facility] Address [address] [place] [address] Phone [phone] Care Team Providers Care Needlemaker Name Role Phone Lucrecia Jacobo MD Primary Care Provider + Encounter Details Date Type Department Care Team (Late st Contact Info) Description 04/26/2024 Orders Only Urogynecology [facility] [address] [place] [address] Delgado Castillo MD [address] [place] [address] Allergies No known active allergiesdocumented as of this encounter (statuses as of 04/26/2024) Medications Medication Sig Dispensed Refills Start Date [...] morning. 90 Tablet 3 11/18/2023 Active Nystatin 198133 UNIT/ML Mouth/Throat SuspensionIndications :Thrush Swish and swallow [...] 1 daily. 90 Tablet 3 11/18/2023 Active Fluticasone-Salmetero l 230-21 MCG/ACT Inhalation Aerosol (Advair HFA) Inhale 2 Puffs by mouth in the morning and 2 Puffs before bedtime. Already approved for patient. 36 g 4 11/25/2023 Active Azelastine HCl 137 MCG/SPRAY Nasal Solution INHALE 1 SPRAY INTO EACH NOSTRIL IN THE MORNING AND AT BEDTIME 30 mL 3 04/14/2024 Active Famotidine 40 MG Oral Tablet (Pepcid) Take 1 Tablet by mouth daily as needed for Heartburn. Active documented as of this encounter (statuses as of 04/26/2024) Active Problems Problem Noted Date Diagnosed Date Gastroesophageal reflux disease without esophagi tis 03/26/2023 Hyperlipidemia with target LDL less than 100 04/2023 Acquired hypothyroidism 03/26/2023 Osteoarthritis of right knee Asthma GERD (gastroesophageal reflux disease) Glaucoma Hypothyroid documented as of this encounter (statuses as of 04/26/2024) Immunizations Name Administration Dates Next Due COVID-19 [...] 05/04/2024 9:15 AM EDT [facility] [address] [place] [address] 09/01/2024 3:30 PM EST Office Visit Allergy/Immunology [facility] [address] [facility] [place] [address] David Lester MD [address] [facility] [place] [address] Health Maintenance Due Date Last Done Comments Depression Screening 1962 Hepatitis C Screening 1969 Cologuard 1996 Colonoscopy 1996 Colorectal Cancer Screening 1996 Fecal Occult Blood Test 1996 Sigmoidoscopy 1996 COVID-19 Vaccine ( season) 2024 10/26/2023, 02/04/2022, 12/18/2020, Additional history exists Influenza Vaccine (FLU shot) (#1) 2024 06/30/2023, 06/27/2022, 08/05/2017, Additional history exists TSH 11/13/2024 04/24/2024, 10/21, 03/27/2023 Mammogram 11/25/2024 11/25/2023, 02/19, 03/19/2022, Additional history exists DTaP,Tdap,and Td Vaccines (2 - Td or Tdap) 04/02/2026 04/02/2016 DXA Scan 11/18/2027 11/18/2017 Lipid Panel 11/13/2028 04/24/2024, 11/13/2023 Pneumococcal Vaccine: 65+ Years Completed [...] Procedure Name Priority Date/Time Associated Diagnosis Comments CHEMISTRY-OUTSIDE Routine 04/24/2024 CHEMISTRY-OUTSIDE Routine 04/24/2024 TSH Routine 04/24/2024 documented in this encounter Results * TSH (04/24/2024) TSH - OUTSIDE LAB 0.389 0.300 - 4.500 UIU/ML OUTSIDE LAB (SEE SCANNED REPORT) Blood Venous blood specimen / Unknown 04/24/2024 Delgado Castillo MD LAB BLOOD ORDERABLES OUTSIDE LAB (SEE SCANNED REPORT) * (ABNORMAL) CHEMISTRY-OUTSIDE (04/24/2024) Not all results display below - see scan for full detail SEE SCAN-CMP, LP, TSH, HGBA1C, TS OUTSIDE LAB (SEE SCANNED REPORT) CREATININE-OUTSID E LAB 0.69 0.6 - 1.2 MG/DL OUTSIDE LAB (SEE SCANNED REPORT) EGFR-OUTSIDE LAB 87 >60 ML/MIN/1. 73M2 OUTSIDE LAB (SEE SCANNED REPORT) POTASSIUM-OUTSIDE LAB 3.8 3.5 - 5.1 MMOL/L OUTSIDE LAB (SEE SCANNED REPORT) GLUCOSE-OUTSIDE LAB 89 70 - 99 MG/DL OUTSIDE LAB (SEE SCANNED REPORT) HOURS FASTING OUTSID E LAB (SEE SCANNED REPORT) TRIGLYCERIDES-OUT SIDE LAB 36 0 - 150 MG/DL OUTSIDE LAB (SEE SCANNED REPORT) CHOLESTEROL-OUTSI DE LAB 151 0 - 200 MG/DL OUTSIDE LAB (SEE SCANNED REPORT) HDL-OUTSIDE LAB 65(A) 40 - 60 MG/DL OUTSIDE LAB (SEE SCANNED REPORT) CHOL/HDL RATIO-OUTSIDE LAB 2.3 0 - 5 OUTSIDE LA B (SEE SCANNED REPORT) LDL (CALCULATED)-OUTS MELANIE LAB 79 <100 MG/DL OUTSIDE LAB (SEE SCANNED REPORT) LDL (DIRECT MEASURE)-OUTSIDE LAB OUTSIDE LAB (SEE SCANNED REPORT) HEMOGLOBIN, Z5N-[id number] LAB 5.7(A) 4.5 - 5.6 % OUTSIDE LAB (SEE SCANNED REPORT) PHOSPHORUS-OUTSID E LAB OUTSIDE LAB (SEE SCANNED REPORT) PTH-OUTSIDE LAB OUTS MELANIE LAB (SEE SCANNED REPORT) MICROALBUMIN RATIO-OUTSIDE LAB OUTSIDE LA B (SEE SCANNED REPORT) PROTEIN, UA-OUTSIDE LAB OUTSIDE LAB (SEE SCANNED REPORT) HGB OUTSIDE LA B (SEE SCANNED REPORT) 04/24/2024 Delgado Castillo MD LABORATORY OUTSIDE LAB (SEE SCANNED REPORT) * CHEMISTRY-OUTSIDE (04/24/2024) Not all results display below - see scan for full detail OUTSIDE LAB (SEE SCANNED REPORT) CREATININE-OUTSID E LAB OUTSIDE LAB (SEE SCANNED REPORT) EGFR-OUTSIDE LAB OUT SIDE LAB (SEE SCANNED REPORT) POTASSIUM-OUTSIDE LAB OUTSIDE LAB (SEE SCANNED REPORT) GLUCOSE-OUTSIDE LAB OUTSIDE LAB (SEE SCANNED REPORT) HOURS FASTING OUTSID E LAB (SEE SCANNED REPORT) TRIGLYCERIDES-OUT SIDE LAB OUTSIDE LAB (SEE SCANNED REPORT) CHOLESTEROL-OUTSI DE LAB OUTSIDE LAB (SEE SCANNED REPORT) HDL-OUTSIDE LAB OUTS MELANIE LAB (SEE SCANNED REPORT) CHOL/HDL RATIO-OUTSIDE LAB OUTSIDE LA B (SEE SCANNED REPORT) LDL (CALCULATED)-OUTS MELANIE LAB OUTSIDE LAB (SEE SCANNED REPORT) LDL (DIRECT MEASURE)-OUTSIDE LAB OUTSIDE LAB (SEE SCANNED REPORT) HEMOGLOBIN, D7O-[id number] LAB OUTSIDE LAB (SEE SCANNED REPORT) PHOSPHORUS-OUTSID E LAB OUTSIDE LAB (SEE SCANNED REPORT) PTH-OUTSIDE LAB OUTS MELANIE LAB (SEE SCANNED REPORT) MICROALBUMIN RATIO-OUTSIDE LAB OUTSIDE LA B (SEE SCANNED REPORT) PROTEIN, UA-OUTSIDE LAB OUTSIDE LAB (SEE SCANNED REPORT) HGB 13.4 12.0 - 16.0 G/DL OUTSIDE LAB (SEE SCANNED REPORT) 04/24/2024 Delgado Castillo MD LABORATORY OUTSIDE LAB (SEE SCANNED REPORT) documented in this encounter Care Teams Needlemaker Relationship Specialty Start Date End Date Lucrecia Jacobo MD [address] [place] [address] PCP - General Internal Medicine 10/02/23 documented as of this encounter
--- OUTSIDE RECORDS SUMMARY | 2024-04-30 17:03 | External Medical Summary | Summary of Care ---
Author Name Unknown Organization [facility] Address [address] [place] [address] Phone [phone] Care Team Providers Care Sales Lead Name Role Phone Lucrecia Jacobo MD Primary Care Provider + Encounter Details Date Type Department Care Team (Late st Contact Info) Description 04/26/2024 Telephone Allergy/Immunology [facility] [place] [address] [place] [address] David Lester MD [address] [facility] [address] Allergies No known active allergiesdocumented as of [...] morning. 90 Tablet 3 11/18/2023 Active Nystatin 822536 UNIT/ML Mouth/Throat SuspensionIndication s:Thrush Swish and swallow [...] mouth daily as needed for Heartburn. Active Fluticasone-Salmeter ol 230-21 MCG/ACT Inhalation Aerosol (Advair HFA) Inhale 2 Puffs by mouth in the morning and 2 Puffs before bedtime. Already approved for patient. 36 g 4 04/26/2024 Active Fluticasone-Salmeter ol 230-21 MCG/ACT Inhalation Aerosol (Advair HFA) Inhale 2 Puffs by mouth in the morning and 2 Puffs before bedtime. Already approved for patient. 36 g 4 11/25/2023 Discontinue d(Refill) documented as of this encounter [...] 05/04/2024 9:15 AM EDT Imaging Cardiac Studies, [facility] [address] [facility] [place] [address] 05/12/2024 4:10 PM EDT Telemedicine Urogynecology [facility] [address] [place] [address] Delgado Castillo MD [address] [place] [address] 05/26/2024 2:10 PM EDT Office Visit Urogynecology [facility] [address] [facility] [place] [address] Delgado Castillo MD [address] [place] [address] 09/01/2024 3:30 PM EST Office Visit Allergy/Immunology [facility] [place] [address] [facility] [place] [address] David Lester MD [address] [facility] [place] [address] Health Maintenance Due Date Last Done Comments [...] filedocumented as of this encounter Care Teams Sales Lead Relationship Specialty Start Date End Date Lucrecia Jacobo MD [address] [place] [address] PCP - General Internal Medicine 10/02/23 documented as of this encounter
--- OUTSIDE RECORDS SUMMARY | 2024-04-30 17:03 | External Medical Summary | Summary of Care ---
Author Name Unknown Organization [facility] Address [address] [place] [address] Phone [phone] Care Team Providers Care Logistics Operations Director Name Role Phone kEaterina Jacobo MD Primary Care Provider + Encounter Details Date Type Department Care Team (Late st Contact Info) Description 04/27/2024 Refill General Internal Medicine [facility] [address] [facility] [place] [address] Ekaterina Jacobo MD [address] [facility] [place] [address] Allergies No known active allergiesdocumented as of [...] morning. 90 Tablet 3 11/18/2023 Active Nystatin [id number] UNIT/ML Mouth/Throat SuspensionIndications :Thrush Swish and swallow [...] Active Benzonatate 100 MG Oral Capsule (Tessalon Perlagusto) Take 1 Capsule by mouth 3 times a day as needed for Cough. 20 Capsule 1 04/27/2024 Active documented as of this encounter (statuses as of 04/27/2024) Active Problems Problem Noted Date Diagnosed Date Gastroesophageal reflux disease without esophagi tis 03/26/2023 Hyperlipidemia with target LDL less than 100 06/ 04/2023 Acquired hypothyroidism 03/26/2023 Osteoarthritis of right [...] encounter Miscellaneous Notes * Telephone Encounter - Ekaterina Jacobo MD - 04/27/2024 10:22 AM EDT Signed Prescriptions: Disp Refills Benzonatate 100 MG Oral Capsule (Tessalon *20 Cap*1 Sig: Take 1 Capsule by mouth 3 times a day as needed for Cough.Authorizing Provider: EKATERINA JACOBO------- * Telephone Encounter - Rohini Joaquin, MED ASSIST - 04/27/2024 8:56 AM EDT Did you pend patient's preferred pharmacy and medication before forwarding?yes Pharmacy: [id number] [address] [place] [address] Pending Prescriptions: Disp Refills Benzonatate 100 MG Oral Capsule (Tessalon*20 Cap*1 Sig: Take 1 Capsule by mouth 3 times a day as needed for Cough. Last Visit: 04/20/2024 (in office), Visit date not found (telemedicine) Next Visit: Visit date not found If no future appointments scheduled, and last appointment is greater than a year ago, please schedule patient for a follow-up appointment Last date the medication was ordered: 10/02/2023 Is this request for a controlled substance?No Urine Drug Screen:No results found for this or any previous visit. Patient Phone Numbers Labs: Lab Results Component Value Date/Time CREAT 0.69 04/24/2024 12:00 AM CREAT 0.75 02/11/2022 09:56 PM POTASSIUM 3.8 04/24/2024 12:00 AM POTASSIUM 2.9 (L) 02/11/2022 09:56 PM POTASSIUM 4.2 08/07/2021 12:12 PM TSH 0.389 04/24/2024 12:00 AM LDLCALC 79 04/24/2024 12:00 AM ALT 15 11/13/2023 09:42 AM HGBA1C 5.7 (A) 04/24/2024 12:00 AM HGBA1C 5.5 02/08/2022 09:39 PM documented in this encounter Plan of Treatment Upcoming Encounters Date Type Department Care Team (Late st Contact Info) Description 05/04/2024 9:15 AM EDT Imaging Cardiac Studies, [facility] [address] [facility] [place] [address] 05/12/2024 4:10 PM EDT Telemedicine Urogynecology [facility] [address] [facility] [place] [address] Delgado Castillo MD [address] [place] [address] 05/26/2024 2:10 PM EDT Office Visit Urogynecology [facility] [address] [facility] [place] [address] Delgado Castillo MD [address] [place] [address] 09/01/2024 3:30 PM EST Office Visit Allergy/Immunology [facility] [place] [address] [facility] [place] [address] David Lester MD [address] [facility] [place] [address] Health Maintenance Due Date Last Done Comments [...] filedocumented as of this encounter Care Teams Logistics Operations Director Relationship Specialty Start Date End Date Ekaterina Jacobo MD [address] [place] [address] PCP - General Internal Medicine 10/02/23 documented as of this encounter
[2024-04-30] MEDS ORDERED: FIRST - Mouthwash BLM 119 ML PO PRN (18:00)
[2024-04-30] MEDS: ALBUTEROL HFA 8 GM INHALER INH PRN (18:59)
[2024-04-30] MEDS: FLUTICASONE/VILANTEROL 200/25MCG 14 PUFFS/INHALER INH SCH (19:05)
[2024-04-30] MEDS: AZELASTINE HCL 0.1% NASAL 200 SPRAYS/27,400 MCG BTL SCH (20:02)
[2024-04-30] MEDS: DOCUSATE SODIUM 100 MG CAP PO SCH (20:04)
[2024-04-30] MEDS: MELATONIN 3 MG TAB PO PRN (20:04)
[2024-04-30] MEDS: PANTOprazole 40 MG TAB PO SCH (20:04)
[2024-04-30] MEDS: GABAPENTIN 100 MG CAP PO SCH (20:04)
[2024-04-30] MEDS: MONTELUKAST SODIUM 10 MG TABLET PO SCH (20:04)
[2024-04-30] MEDS: DOCUSATE SODIUM 100 MG CAP PO ONE (23:47)
[2024-05-01] MEDS: LEVOTHYROXINE SODIUM 75 MCG TABLET PO SCH (06:19)
[2024-05-01 07:04] LABS: Basophils # (auto) 0.02 K/uL (0.00-0.20); Basophils % (auto) 0.2 %; Eosinophils # (auto) 0.01 K/uL (0.00-0.50); Eosinophils % (auto) 0.1 %; Hematocrit (blood only) 36.6 % (37.0-47.0); Hemoglobin 12.1 g/dl (12.0-16.0); Immature Granulocytes # (auto) 0.07 K/uL (0.01-0.20); Immature Granulocytes % (auto) 0.8 %; Lymphocytes # (auto) 1.51 K/uL (1.20-3.40); Lymphocytes % (auto) 16.9 %; Mean Corpuscular Hemoglobin 32.2 pg (25.0-34.0); Mean Corpuscular Hgb Conc 33.1 g/dL (32.0-36.0); Mean Corpuscular Volume 97.3 fL (80.0-100.0); Mean Platelet Volume 10.2 fL (9.4-12.4); Monocytes # (auto) 0.75 K/uL (0.11-0.59); Monocytes % (auto) 8.4 %; Neutrophils # (auto) 6.59 K/uL (1.40-6.50); Neutrophils % (auto) 73.6 %; Platelet Count 220 K/uL (130-400); RDW Coefficient of Variation 12.1 % (11.5-14.5); RDW Standard Deviation 43.6 fL (36.4-46.3); Red Blood Count 3.76 M/uL (4.20-5.40); White Blood Count 8.95 K/ul (4.8-10.8)
[2024-05-01 07:14] LABS: BUN Creatinine Ratio 18.8 (10-20); Calcium 8.4 mg/dl (8.6-10.3); Creatinine Clr Calc Pharmacy 50.5 ml/min; Est GFR (African American) 85.4 ml/min; Est GFR (Non-African American) 73.7 ml/min; Potassium 4.4 mmol/L (3.5-5.1)
[2024-05-01] MEDS: PSYLLIUM or GUAR GUM FIBER 4GM PACKET PO SCH (07:28)
[2024-05-01] MEDS: ATORVASTATIN 10 MG TAB PO SCH (07:28)
[2024-05-01] MEDS: ACETAMINOPHEN 325 MG TAB PO PRN (07:30)
--- NOTE | 2024-05-01 08:29 | Gynecologic Progress Note ---
Date of Service May 01, 2024 Assessment & Plan (1) Uterovaginal prolapse, complete: Plan: POD#1 s/p robotic hysterectomy, BSO, Sacral Colpopexy, sling, and cystoscopy. Recovering well. Sodium, Hgb are stable. Awaiting voiding trial. Anticipated discharge home. Post op instructions and follow up were reviewed. All questions answered. Present on Admission?: Yes Admission and Anticipated Discharge Date Admission Date: April 30, 2024 Anticipated date of discharge: 05/01/24 Subjective Feeling well, denies SOB or CP. Tolerating diet, no nausea. Pain well controlled. Review of Systems Review of Systems: All systems reviewed & are unremarkable except as noted in HPI & below Physical Exam Constitutional: WD/WN, vitals as above Eyes: PERRL, conjunctivae normal, anicteric sclerae Neck: trachea midline, no thyromegaly Respiratory: normal respiratory effort Cardiovascular: Rate/Rhythm: regular rate Gastrointestinal (Abdomen): normal bowel sounds, soft, nontender, no hepatosplenomegaly Incisions are clean dry and intact. Non tender. Musculoskeletal: no cyanosis or clubbing, extremities motor strength 5/5 Skin: no rashes, warm and dry Psychiatric: A+Ox3, euthymic affect Results & Data Vital Signs (Past 12 Hours) Vital Signs Temp Pulse Resp BP Pulse Ox O2 Del Method 05/01/24 04:11 37.1 C 82 18 146/71 H 98 Room Air 04/30/24 23:35 37.4 C 74 18 128/74 93 Room Air
--- NOTE | 2024-05-01 08:32 | Discharge Summary ---
Date of Service May 01, 2024 Admission HPI Per Admitting Provider Perry Terrazas has been using a pessary for her uterovaginal prolapse. Pessary works well for the prolapse symptoms, however, she continues to have DARIUS with coughing and sneezing. She saw Dr. Potter in [place] last year and was scheduled have surgery for her prolapse and incontinence. Since then she has relocated to [place] and lives with her daughter in law and son. She did have some vaginal bleeding, biopsy showed endometrial polyp. Using estrogen cream and the bleeding has resolved. Admission Exam (Per Admitting) Constitutional WD/WN, vitals as above Eyes PERRL, conjunctivae normal, anicteric sclerae Neck trachea midline, no thyromegaly Respiratory normal respiratory effort Cardiovascular Rate/Rhythm: regular rate Gastrointestinal (Abdomen) normal bowel sounds, soft, nontender, no hepatosplenomegaly Musculoskeletal no cyanosis or clubbing, extremities motor strength 5/5 Skin no rashes, warm and dry Psychiatric A+Ox3, euthymic affect Discharge Data Procedures Performed Operation Date: 04/30/24 07:30 Actual Procedures p Robotic Hysterectomy, Bilateral Salpingo-Oophorectomy, Robotic Sacral Colpopexy and , (Not Applicable) - Delgado Castillo MD s Cystoscopy(Not Applicable) - Delgado Castillo MD s Mid-Urethral Sling (Polypropylene Mesh)(Not Applicable) - Delgado Castillo MD Hospital Course (1) Uterovaginal prolapse, complete: POD#1 s/p robotic hysterectomy, BSO, Sacral Colpopexy, sling, and cystoscopy. Recovering well. Sodium, Hgb are stable. Awaiting voiding trial. Anticipated discharge home. Post op instructions and follow up were reviewed. All questions answered. Discharge Instructions Pleas call our office with any questions or concerns,
== END 2024-05-01 10:35 | disposition home or self-care (01) ==
LOC: PACUINP 06:06 → ASU 06:06 → 4E1 13:42